=== PATIENT | male | born 1950 | race Caucasian/White ===

== ENCOUNTER 2023-01-13 09:45 | Outpatient (OUT) | payer MEDICARE, OTHER, SELFPAY ==
--- NOTE | 2023-01-13 09:58 | CA_ITS ---
Patient Name Site Name SHEY TAVERAS [facility] Account No Medical Record Number Age Sex Date Time [id number] [facility]:[id number] M 01/13/2023 10:08 At the Request Of KENNEY GARCIA ECHOCARDIOGRAM REPORT PROCEDURE: CA ECHO DOPPLER COMPLETE INDICATIONS: Nonrheumatic aortic valve stenosis, AICD, COPD, hypertension COMPARISON: None. DESCRIPTION: COMPLETE ECHOCARDIOGRAM Real-time transthoracic echocardiography with 2D, M-mode, spectral and color flow Doppler performed. QUALITY: Technical quality was good. LEFT VENTRICLE: Normal chamber size. Proximal septal hypertrophy (sigmoid septum). Global left ventricular systolic function appears preserved with akinesis of the apical segments. LV EF: Low normal left ventricular ejection fraction, (50%). DIASTOLIC: Grade II diastolic dysfunction. ATRIAL SEPTUM: Visually appears intact. LEFT ATRIUM: Moderate dilatation. RIGHT ATRIUM: Moderate dilatation. RIGHT VENTRICLE: Normal chamber size. Normal systolic function. Pacer wire present. TRICUSPID VALVE: Normal mobility and thickness. No stenosis with mild regurgitation. Doppler studies reveal mildly (35-45) elevated right sided pressures. RVSP 35 mmHg MITRAL VALVE: Normal mobility and thickness. No evidence of mitral valve stenosis. There is no mitral annular calcification. Mild mitral regurgitation. AORTIC VALVE: Normal trileaflet appearance. Severely calcified aortic valve. Severely diminished mobility. Doppler velocity suggest severe aortic valve stenosis. LVOT diameter 2.0 cm. DVI 0.25, CAMMIE 0.8 cm2. Mean gradient 27 mmHg. Mild to moderate aortic regurgitation. Valvular gradients appear to be underestimated due to incomplete Doppler envelope across the aortic valve. AORTIC ROOT: Normal diameter and appearance. PULMONIC VALVE: Not well visualized. No stenosis. No regurgitation. PERICARDIUM: No evidence of pericardial effusion. IVC: Collapses with inspirations. PLEURA: CONCLUSION: 1. Ventricular systolic function is at the lower limits of normal with apical wall motion abnormalities. LVEF is 50%. 2. Normal right ventricular size and systolic function. 3. Severe aortic valve stenosis. 4. Mildly elevated right-sided pressures. Adult Echocardiography Procedure Report Left Ventricle LVEDD (3.7 - 5.6 cm): 5.28 cm LVESD (2.2 - 4.0 cm): 3.54 cm LVIVS thickness (0.6 - 1.2 cm): 1.43 cm LVPW thickness (0.5 - 1.0 cm): 1.05 cm e': 0.09 m/s E - e': 8.52 LVOT Max Gradient: 3.33 mm[Hg] LVOT Area (cm2): 0.91 m/s Peak Velocity (LVOT): 0.91 m/s Mean Velocity (LVOT): 0.62 m/s LVOT Diameter 2.0 cm Left Atrium LA Volume Index (2D A2C): 47.59 ml/m2 Left Atrium Systolic Dimension: 5.38 cm Mitral Valve MV E to A Ratio: 1.13 Mitral Valve A-Wave Peak Velocity: 0.67 m/s Mitral Valve E-Wave Peak Velocity: 0.76 m/s Right Ventricle Aorta AO Root Diam: 3.49 cm Aortic Valve AoV Area (Peak Eitan): 1.11 cm2, 1.12 cm2 AoV Area (VTI): 1.27 cm2, 1.29 cm2 Peak Velocity(Antegrade Flow): 3.32 m/s, 3.39 m/s Peak Gradient(Antegrade Flow): 44.04 mm[Hg], 45.96 mm[Hg] Mean Velocity(Antegrade Flow): 2.37 m/s, 2.41 m/s Mean Gradient(Antegrade Flow): 25.68 mm[Hg], 26.82 mm[Hg] Velocity Time Integral: 73.91 cm, 76.26 cm Tricuspid Valve Peak Velocity (Regurgitant Flow): 2.39 m/s, 2.84 m/s Pulmonic Valve Peak Velocity: 0.70 m/s Peak Gradient: 1.91 mm[Hg], 2.06 mm[Hg] Right Atrium Right Atrium Systolic Pressure: 80.23 ml, 80.23 ml Dictated by: Jigar Chun M.D. on 01/14/2023 at 17:59 Approved by: Jigar Chun M.D. on 01/14/2023 at 18:14
== END 2023-01-13 09:46 ==
PROVIDERS: Visit Provider Nurse Practitioner
DX: I35.0 Nonrheumatic aortic (valve) stenosis (principal)
CPT/HCPCS: 93306

== ENCOUNTER 2023-07-07 13:50 | Outpatient (OUT) | payer MEDICARE, OTHER, SELFPAY ==
--- NOTE | 2023-07-07 14:36 | CA_ITS ---
Patient Name: SHEY TAVERAS MR#: [id number] : 1950 Exam Date: 07/07/2023 Ordering Doctor: DR GERTRUDIS KHOURY M.D. ECHOCARDIOGRAM REPORT PROCEDURE: CA ECHO DOPPLER COMPLETE INDICATIONS: Nonrheumatic aortic valve stenosis, defibrillator COMPARISON: None. DESCRIPTION: COMPLETE ECHOCARDIOGRAM Real-time transthoracic echocardiography with 2D, M-mode, spectral and color flow Doppler performed. QUALITY: Technical quality was good. 68 , 180# , BSA 1.95 m2 LEFT VENTRICLE: Normal chamber size. Proximal septal hypertrophy (sigmoid septum). LV EF: Global left ventricular systolic function is hyperdynamic; visually estimated ejection fraction is 65 to 70%. Unable to assess regional wall motion abnormalities. DIASTOLIC: Diastolic function is indeterminate. ATRIAL SEPTUM: Visually appears intact. LEFT ATRIUM: Mild dilatation. RIGHT ATRIUM: Mild dilatation. RIGHT VENTRICLE:Poorly seen. Normal chamber size. Normal right ventricular systolic function. Pacer wire present. TRICUSPID VALVE: Normal mobility and thickness. No stenosis with trivial regurgitation. No evidence of pulmonary hypertension. RVSP 33 mmHg MITRAL VALVE: Normal mobility and thickness. No evidence of mitral valve stenosis. Mild mitral annular calcification. Mild mitral regurgitation. AORTIC VALVE: Normal trileaflet appearance. Severely calcified aortic valve. Doppler velocity suggest moderate aortic valve stenosis. DVI 0.28. Mild aortic regurgitation. AORTIC ROOT: Normal diameter and appearance. PULMONIC VALVE: Normal thickness and mobility. No stenosis. Trivial regurgitation. PERICARDIUM: No evidence of pericardial effusion. IVC: Collapses with inspirations. IVC is normal in size. CONCLUSION: 1. Global ventricular systolic function is hyperdynamic; visually estimated ejection fraction is 65 to 70% 2. The right ventricle is poorly seen; it appears normal in size and systolic function 3. Diastolic function is indeterminate 4. Biatrial enlargement 5. Mild mitral regurgitation 6. Moderate aortic valve stenosis; mild aortic valve regurgitation Adult Echocardiography Procedure Report Left Ventricle LVEDD (3.7 - 5.6 cm): 5.04 cm LVESD (2.2 - 4.0 cm): 3.05 cm LVIVS thickness (0.6 - 1.2 cm): 1.66 cm LVPW thickness (0.5 - 1.0 cm): 1.31 cm e': 0.06 m/s E - e': 13.24 LVOT Max Gradient: 2.82 mm[Hg] LVOT Area (cm2): 0.84 m/s Peak Velocity (LVOT): 0.84 m/s Mean Velocity (LVOT): 0.61 m/s LVOT Diameter 2.36 cm Left Atrium LA Volume Index (2D A2C): 40.24 ml/m2 Left Atrium Systolic Dimension: 5.24 cm Mitral Valve MV E to A Ratio: 1.89 Mitral Valve A-Wave Peak Velocity: 0.43 m/s Mitral Valve E-Wave Peak Velocity: 0.82 m/s Right Ventricle Aorta AO Root Diam: 3.81 cm Aortic Valve Tricuspid Valve Peak Velocity (Regurgitant Flow): 2.35 m/s Pulmonic Valve Peak Velocity: 0.68 m/s Peak Gradient: 2.02 mm[Hg], 1.67 mm[Hg] Right Atrium Dictated by: Sandrine Jeffers M.D. on 07/08/2023 at 08:33 Approved by: Sandrine Jeffers M.D. on 07/08/2023 at 08:40
== END 2023-07-07 13:51 | disposition home or self-care (01) ==
LOC: CARD 13:50
PROVIDERS: Visit Provider Internal Medicine Interventional Cardiology
DX: I35.0 Nonrheumatic aortic (valve) stenosis (principal)
CPT/HCPCS: 93306

== ENCOUNTER 2024-01-26 08:46 | Outpatient (OUT) | payer MEDICARE, OTHER, SELFPAY ==
--- OUTSIDE RECORDS SUMMARY | 2024-01-26 08:52 | XMS_ITS | CCD ---
Author Organization [facility] Team Providers Care Grocery Caddy Name Role Phone UNKNOWN, PROVIDER Admitting Unavailable SELF, REFERRED Referring Unavailable SELF, REFERRED Primary Care Unavailable UNKNOWN, PROVIDER Attending Unavailable PENG, DR CABA Admitting Unavailable PENG, DR CABA Attending Unavailable PENG, DR CABA Consulting Unavailable DAYAMI GONCALVES Admitting Unavailable DAYAMI GONCALVES Attending Unavailable DAYAMI GONCALVES Consulting Unavailable GERTRUDIS KHOURY Attending Unavailable ASHLEY BROWN Referring Unavailable PENG, GERTRUDIS Attending Unavailable ASHLEY BROWN Referring Unavailable ASHLEY BROWN Referring Unavailable Alessandra CABRERA, [facility] Primary Care Provider SALVATORE MCDANIELS Referring Unavailable LAESSANDRA JULIETA Primary Care [facility] Care Unavailable ORLANDO MENDENHALL Referring Unavailable Allergies Allergy Classification Reported Allergen(s) Allergy Type Date of Onset Reaction(s) Facility (1 source) Amiodarone Drug Allergy 06-20-2021 [facility] Repository (2 sources) pantoprazole; Translations: [PANTOPRAZOLE] Drug Allergy 02-12-2017 [facility] Repository (2 sources) Amiodarone; Translations: [AMIODARONE] Drug Allergy 03-26-2016 [facility] Repository (1 source) pantoprazole Drug Allergy 10-11-2019 [facility] Medications Current Medications Medication Drug Class(es) Dates Sig (Normalized) Sig (Original) [id number] 200 actuat albuterol 0.09 mg/actuat metered dose inhaler (1 source) beta2-Adrenergic Agonist take 2 puff(s) by inhalation every six hours as needed for wheezing albuterol sulfate HFA (PROVENTIL;VENTOL IN;PROAIR) 108 (90 Base) MCG/ACT inhaler Inhale 2 puffs into the lungs every 6 hours as needed for Wheezing 0 Active albuterol 0.833 mg/ml / ipratropium bromide 0.167 mg/ml inhalation solution (1 source) Anticholinergic, beta2-Adrenergic Agonist take 3 mL by inhalation every four hours ipratropium-albut jitendra (DUONEB) 0.5-2.5 (3) MG/3ML SOLN nebulizer solution Inhale 3 mLs into the lungs every 4 hours 0 Active apixaban 5 mg oral tablet (1 source) Factor Xa Inhibitor take 1 tablet by mouth twice daily apixaban (ELIQUIS) 5 MG TABS tablet Take 1 tablet by mouth 2 times daily 0 Active atorvastatin 20 mg oral tablet (1 source) HMG-CoA Reductase Inhibitor take 1 tablet by mouth once daily 60 actuat budesonide 0.16 mg/actuat / formoterol fumarate 0.0045 mg/actuat metered dose inhaler (1 source) Corticosteroid, beta2-Adrenergic Agonist take 2 puff(s) by inhalation once daily budesonide-formot jitendra (SYMBICORT) 160-4.5 MCG/ACT AERO Inhale 2 puffs into the lungs daily 0 Active furosemide 20 mg oral tablet (1 source) Loop Diuretic Start: 11-25-2022 take 1 tablet by mouth every other day furosemide (LASIX) 20 MG tablet Take 1 tablet by mouth every other day 90 tablet 2 11/25/2022 Active lisinopril 5 mg oral tablet (1 source) Angiotensin Converting Enzyme Inhibitor Start: 04-17-2020 take 1 tablet by mouth once daily lisinopril (PRINIVIL;ZESTRIL ) 5 MG tablet Take 1 tablet by mouth daily 90 tablet 3 04/17/2020 Active metoprolol tartrate 100 mg oral tablet (1 source) beta-Adrenergic Alfredito take 1 tablet by mouth twice daily metoprolol (LOPRESSOR) 100 MG tablet Take 1 tablet by mouth 2 times daily 0 Active Problems Active Problems Problem Classification Problem Date Documented Date Episodic/Chronic Cardiac dysrhythmias (2 sources) Paroxysmal atrial fibrillation; Translations: [Paroxysmal atrial fibrillation] Onset: 01-15-2023 Chronic Chronic kidney disease (1 source) Chronic kidney disease stage 3A ; Translations: [Stage 3a chronic kidney disease (HCC)] 12-11-2023 Chronic Chronic kidney disease (3 sources) Chronic kidney disease; Translations: [Chronic kidney disease, stage 3a] Onset: 01-15-2023 Conduction disorders (4 sources) Presence of automatic (implantable) cardiac defibrillator; Translations: [Encounter for adjustment and management of automatic implantable cardiac defibrillator] Onset: 09-03-2022 Chronic Coronary atherosclerosis and other heart disease (2 sources) Atherosclerotic heart disease of morongo coronary artery without angina pectoris; Translations: [Atherosclerotic heart disease of morongo coronary artery without angina pectoris] Onset: 07-10-2022 Chronic Essential hypertension (3 sources) Essential (primary) hypertension; Translations: [Essential (primary) hypertension] Onset: 01-15-2023 Chronic Fluid and electrolyte disorders (1 source) Hyperkalemia; Translations: [Hyperkalemia] Onset: 12-17-2023 Episodic Heart valve disorders (7 sources) Nonrheumatic aortic (valve) stenosis; Translations: [Rheumatic disorders of both mitral and aortic valves] Onset: 12-27-2021 Chronic Ashlie-; endo-; and myocarditis; cardiomyopathy (except that caused by tuberculosis or sexually transmitted disease) (2 sources) Other hypertrophic cardiomyopathy; Translations: [Other hypertrophic cardiomyopathy] Onset: 07-10-2022 Chronic Past or Other Problems Problem Classification Problem Date Documented Da te Episodic/Chronic Coronary atherosclerosis and other heart disease (2 sources) Presence of aortocoronary bypass graft; Translations: [Presence of aortocoronary bypass graft] Onset: 01-15-2023 Episodic Unclassified (1 source) Onset: 11-25-2022 11-25-2022 Results Test Name Value Interpretation Reference Range Facility Basic Metabolic Profon 12-16 Anion gap [Moles/Vol] 11 mmol/L Normal 9-16 [facility] Comment on above: Performed By: #### B MP #### [employer] [address] [place] [address] [id number] [employer] Covers Inspector: Cameron Hargrove MD Calcium [Mass/Vol] 9.4 mg/dL Normal 8.6-10.4 [facility] Comment on above: Performed By: #### B MP #### [employer] [address] [place] [address] [employer] Inspector: Cameron Hargrove MD Chloride [Moles/Vol] 107 mmol/L Normal 98-107 [facility] Comment on above: Performed By: #### B MP #### [facility] [place] [address] [employer] Covers Inspector: Cameron Hargrove MD CO2 [Moles/Vol] 26 mmol/L Normal 20-31 [facility] Comment on above: Performed By: #### B MP #### [facility] [employer] [address] [place] [address] [employer] Co[employer] Inspector: Cameron Hargrove MD Creatinine [Mass/Vol] 1.6 mg/dL High 0.70-1.20 [facility] Comment on above: Performed By: #### B MP #### [address] [address] [employer] Inspector: Cameron Hargrove MD GFR/1.73 sq M.predicted among non-blacks MDRD (S/P/Bld) [Vol rate/Area] 45 mL/min/{1.73_m2} Low >60 [facility] Comment on above: Result Comment: These results are not intended for use in patients <18 years of age. eGFR results are calculated without a race factor using the 2020 CKD-EPI equation. Careful clinical correlation is recommended, particularly when comparing to results calculated using previous equations. The CKD-EPI equation is less accurate in patients with extremes of muscle mass, extra-renal metabolism of creatine, excessive creatine ingestion, or following therapy that affects renal tubular secretion. Performed By: #### B MP #### [facility] [address] [place] [address] [employer] Co[employer] Inspector: Cameron Hargrove MD Glucose [Mass/Vol] 62 mg/dL Low 74-99 [facility] Comment on above: Performed By: #### B MP #### [address] [address] [employer] Co[employer] Inspector: Cameron Hargrove MD Potassium [Moles/Vol] 5.2 mmol/L Normal 3.7-5.3 [facility] Comment on above: Result Comment: SPEC IMEN SLIGHTLY HEMOLYZED, RESULTS MAY BE ADVERSELY AFFECTED. Performed By: #### B MP #### [employer] [address] [place], [place] [id number] [employer] Covers Inspector: Cameron Hargrove MD Sodium [Moles/Vol] 144 mmol/L Normal 136-145 [facility] Comment on above: Performed By: #### B MP #### [employer] [address] [place] [address] [employer] Covers Inspector: Cameron Hargrove MD Urea nitrogen [Mass/Vol] 23 mg/dL Normal 8-23 [facility] Comment on above: Performed By: #### B MP #### [employer] [address] [place], [place] [id number] [employer] Covers Inspector: Cameron Hargrove MD Basic Metabolic Panelon 05-0 Anion gap [Moles/Vol] 12 mmol/L 9 - 16 mmol/L [facility] Calcium [Mass/Vol] 9.7 mg/dL 8.6 - 10. 4 mg/dL [facility] Chloride [Moles/Vol] 102 mmol/L 98 - 10 7 mmol/L [facility] [employer] CO2 [Moles/Vol] 27 mmol/L 20 - 31 mmol/L [facility] [employer] Creatinine [Mass/Vol] 1.4 mg/dL High 0.70 - 1.20 mg/dL [facility] Est, Glom Filt Rate 54 Low - PINF [facility] Comment on above: These results are not intended for use in patients <18 years of age. eGFR results are calculated without a race factor using the 2020 CKD-EPI equation. Careful clinical correlation is recommended, particularly when comparing to results calculated using previous equations. The CKD-EPI equation is less accurate in patients with extremes of muscle mass, extra-renal metabolism of creatine, excessive creatine ingestion, or following therapy that affects renal tubular secretion. Glucose [Mass/Vol] 95 mg/dL 74 - 99 mg/dL [facility] Potassium [Moles/Vol] 5.6 mmol/L High 3.7 - 5.3 mmol/L [facility] Sodium [Moles/Vol] 141 mmol/L 136 - 145 mmol/L [facility] Urea nitrogen [Mass/Vol] 21 mg/dL 8 - 23 mg/dL [facility] Basic Metabolic Profon 12-10 Anion gap [Moles/Vol] 12 mmol/L Normal 9-16 [facility] Comment on above: Performed By: #### C LANI BMP, VD25 #### [facility] [employer] [address] [place] [address] [employer] Co[employer] Inspector: Cmaeron Hargrove MD Calcium [Mass/Vol] 9.7 mg/dL Normal 8.6-10.4 [facility] Comment on above: Performed By: #### C LIVAN GARIBAY, VD25 #### [facility] [employer] [address] [place] [address] [employer] Covers Inspector: Cameron Hargrove MD Chloride [Moles/Vol] 102 mmol/L Normal 98-107 [facility] Comment on above: Performed By: #### C LIVAN GARIBAY, VD25 #### [facility] [address] [place] [address] U[employer]ol[employer] Covers Inspector: Cameron Hargrove MD CO2 [Moles/Vol] 27 mmol/L Normal 20-31 [facility] Comment on above: Performed By: #### C LIVAN GARIBAY, VD25 #### [facility] [address] [place] [address] [employer] Co[employer] Inspector: Cameron Hargrove MD Creatinine [Mass/Vol] 1.4 mg/dL High 0.70-1.20 [facility] Comment on above: Performed By: #### C LANI BMP, VD25 #### [facility] [address] [place] [address] [employer] Co[employer] Inspector: Cameron Hargrove MD GFR/1.73 sq M.predicted among non-blacks MDRD (S/P/Bld) [Vol rate/Area] 54 mL/min/{1.73_m2} Low >60 [facility] Comment on above: Result Comment: These results are not intended for use in patients <18 years of age. eGFR results are calculated without a race factor using the 2020 CKD-EPI equation. Careful clinical correlation is recommended, particularly when comparing to results calculated using previous equations. The CKD-EPI equation is less accurate in patients with extremes of muscle mass, extra-renal metabolism of creatine, excessive creatine ingestion, or following therapy that affects renal tubular secretion. Performed By: #### C LIVAN GARIBAY, VD25 #### [facility] [address] [place] [address] [employer] Co[employer] Inspector: Cameron Hargrove MD Glucose [Mass/Vol] 95 mg/dL Normal 74-99 [facility] Comment on above: Performed By: #### C LIVAN GARIBAY, VD25 #### [employer] [address] [place] [address] [employer] Co[employer] Inspector: Cameron Hargrove MD Potassium [Moles/Vol] 5.6 mmol/L High 3.7-5.3 [facility] Comment on above: Performed By: #### C LIVAN GARIBAY, VD25 #### [employer] [address] [place] [address] [employer] Co[employer] Inspector: Cameron Hargrove MD Sodium [Moles/Vol] 141 mmol/L Normal 136-145 [facility] Comment on above: Performed By: #### C LANI BMP, VD25 #### [employer] [address] [place] [address] [employer] Covers Inspector: Cameron Hargrove MD Urea nitrogen [Mass/Vol] 21 mg/dL Normal 8-23 [facility] Comment on above: Performed By: #### C LIVAN GARIBAY, VD25 #### [employer] [address] [place] [address] [employer] Co[employer] Inspector: Cameron Hargrove MD CBCon 12-11-2023 Erythrocyte distribution width (RBC) [Ratio] 14.2 % Normal 11.8-14.4 [facility] Comment on above: Performed By: #### C BC, BMP, VD25 #### [facility] [employer] [address] [place] [address] [employer] Covers Inspector: Cameron Hargrove MD Hematocrit (Bld) [Volume fraction] 45.0 % Normal 40.7-50.3 [facility] Comment on above: Performed By: #### C BC, BMP, VD25 #### [facility] [address] [place] [address] [employer] Co[employer] Inspector: Cameron Hargrove MD Hemoglobin (Bld) [Mass/Vol] 13.7 g/dL Normal 13.0-17.0 [facility] Comment on above: Performed By: #### C BC, BMP, VD25 #### [facility] [employer] [address] [place] [address] [employer] Co[employer] Inspector: Cameron Hargrove MD MCH (RBC) [Entitic mass] 30.0 pg Normal 25.2-33.5 [facility] Comment on above: Performed By: #### C BC, BMP, VD25 #### [facility] [address] [place] [address] [employer] Co[employer] Inspector: Cameron Hargrove MD MCHC (RBC) [Mass/Vol] 30.4 g/dL Normal 28.4-34.8 [facility] Comment on above: Performed By: #### C BC, BMP, VD25 #### [facility] [address] [place] [address] [employer] Covers Inspector: Cameron Hargrove MD MCV (RBC) [Entitic vol] 98.5 fL Normal 82.6-102.9 [facility] Comment on above: Performed By: #### C BC, BMP, VD25 #### [facility] [employer] [address] [place] [address] [employer] Covers Inspector: Cameron Hargrove MD NRBC Automated 0.0 per 100 WBC Normal 0.0 [facility] Comment on above: Performed By: #### LIVAN LAUREANO, VD25 #### [facility] [address] [place] [address] [employer] Co[employer] Inspector: Cameron Hargrove MD Platelet mean volume (Bld) [Entitic vol] 10.9 fL Normal 8.1-13.5 [facility] Comment on above: Performed By: #### C LIVAN GARIBAY, VD25 #### [facility] [address] [place] [address] [employer] Co[employer] Inspector: Cameron Hargrove MD Platelets (Bld) [#/Vol] 162 10*3/uL Normal 138-453 [facility] Comment on above: Performed By: #### LIVAN LAUREANO, VD25 #### [facility] [employer] [address] [place] [address] [employer] Co[employer] Inspector: Cameron Hargrove MD RBC (Bld) [#/Vol] 4.57 10*6/uL Normal 4.21-5.77 [facility] Comment on above: Performed By: #### ILVAN LAUREANO, VD25 #### [facility] [address] [place] [address] [employer] Co[employer] Inspector: Cameron Hargrove MD WBC (Bld) [#/Vol] 7.3 10*3/uL Normal 3.5-11.3 [facility] Comment on above: Performed By: #### C LIVAN GARIBAY, VD25 #### [facility] [employer] [address] [place] [address] [employer] Covers Inspector: Cameron Hargrove MD Erythrocyte distribution width (RBC) [Ratio] 14.2 % 11.8 - 14.4 % [facility] Hematocrit (Bld) [Volume fraction] 45.0 % 40.7 - 50.3 % [facility] Hemoglobin (Bld) [Mass/Vol] 13.7 g/dL 13.0 - 17.0 g/dL [facility] MCH (RBC) [Entitic mass] 30.0 pg 25.2 - 33.5 pg [facility] MCHC (RBC) [Mass/Vol] 30.4 g/dL 28.4 - 34.8 g/dL [facility] MCV (RBC) [Entitic vol] 98.5 fL 82.6 - 102.9 fL [facility] Nucleated RBC/100 WBC (Bld) [Ratio] 0.0 % 0.0 per 100 WBC [facility] Platelet mean volume (Bld) [Entitic vol] 10.9 fL 8.1 - 13.5 fL [facility] Platelets (Bld) [#/Vol] 162 10*3/uL [facility] RBC (Bld) [#/Vol] 4.57 10*6/uL 4.21 - 5.7 7 m/uL [facility] WBC other (Bld) [#/Vol] 7.3 [facility] No Panel Informationon 12-10 Interpretation and review of laboratory results Abnormal [facility] Protein / Creatinine Ratio, Urineon 12-11-2023 Creatinine (U) [Mass/Vol] 36.1 mg/dL Low 39.0 - 259.0 mg/dL [facility] Interpretation and review of laboratory results Abnormal [facility] Protein (U) [Mass/Vol] 8 mg/dL [facility] Comment on above: No normal range esta blished. Urine Total Protein Creatinine Ratio 0.21 [facility] Protein,Tot,Thornton Uron 2023 Creatinine [Mass/Vol] 36.1 mg/dL Low 39.0-259.0 [facility] Comment on above: Performed By: #### U RTPRT #### [employer] [address] [place] [address] [employer] Co[employer] Inspector: Caemron Hargrove MD Tot Prot. Conc. 8 mg/dL Normal [facility] Comment on above: Result Comment: No n ormal range established. Performed By: #### U RTPRT #### [address] [address] [employer] Inspector: Cameron Hargrove MD TP/Cre Ratio 0.21 Normal [facility] Comment on above: Performed By: #### U RTPRT #### [address] [address] [employer] Co[employer] Inspector: Cameron Hargrove MD Urinalysis w/ Microon 2023 Bacteria None Normal NONE [facility] Comment on above: Performed By: #### U AMIC #### [address] [address] [employer] Inspector: Cameron Hargrove MD Bilirubin, SemiQt,Ur Negative Normal NEG [facility] Comment on above: Performed By: #### U AMIC #### [address] [address] [employer] Inspector: Cameron Hargrove MD Blood, Urine Negative Normal NEG [facility] Comment on above: Performed By: #### U AMIC #### [address] [address] [employer] Inspector: Cameron Hargrove MD Casts None Normal 0-8 [facility] Comment on above: Result Comment: Refe rence range defined for non-centrifuged specimen. Performed By: #### U AMIC #### [address] [address] [employer] Inspector: Cameron Hargrove MD Clarity (U) Clear Normal CLEAR [facility] Comment on above: Performed By: #### U AMIC #### [address] [address] [employer] Inspector: Cameron Hargrove MD Color (U) Yellow Normal YEL [facility] Comment on above: Performed By: #### U AMIC #### [address] [address] [employer] Inspector: Cameron Hargrove MD Epithelial cells LM Ql (Urine sed) None Normal 0-5 [facility] Comment on above: Performed By: #### U AMIC #### [address] [address] [employer] Inspector: Cameron Hargrove MD Glucose Ql (U) Negative Normal NEG [facility] Comment on above: Performed By: #### U AMIC #### [address] [address] [employer] Inspector: Cameron Hargrove MD Ketones Ql (U) Negative Normal NEG [facility] Comment on above: Performed By: #### U AMIC #### [address] [address] [employer] Inspector: Cameron Hargrove MD Leukocyte esterase Test strip Ql (U) Negative Normal NEG [facility] Comment on above: Performed By: #### U AMIC #### [address] [address] [employer] Inspector: Cameron Harrgove MD Nitrite,Ur Negative Normal NEG [facility] Comment on above: Performed By: #### U AMIC #### [address] [address] [employer] Co[employer] Inspector: Cameron Hargrove MD PH,Ur 6.0 Normal 5.0-8.0 [facility] Comment on above: Performed By: #### U AMIC #### [address] [address] [employer] Inspector: Cameron Hargrove MD Protein Ql (U) Negative Normal NEG [facility] Comment on above: Performed By: #### U AMIC #### [address] [address] [employer] Inspector: Cameron Hargrove MD Spec. [place],Ur 1.006 Normal 1.005-1.030 [facility] Comment on above: Performed By: #### U AMIC #### [employer] [address] [place] [address] [employer] Covers Inspector: Cameron Hargrove MD Urine RBC's None Normal 0-4 [facility] Comment on above: Result Comment: Refe rence range defined for non-centrifuged specimen. Performed By: #### U AMIC #### [facility] [address] [place] [address] [employer] Covers Inspector: Cameron Hargrove MD Urine WBC's None Normal 0-5 [facility] Comment on above: Performed By: #### U AMIC #### [facility] [employer] [address] [place] [address] [employer] Covers Inspector: Cameron Hargrove MD Urobilinogen,Ur Normal Normal 0.0-1.0 [facility] Comment on above: Performed By: #### U AMIC #### [facility] [address] [address] [employer] Co[employer] Inspector: Cameron Hargrove MD Urinalysis with Microscopico n 12-11-2023 Bacteria LM Ql (Urine sed) None None [facility] Bilirubin Ql (U) Negative NEGATIVE [facility] Casts LM.LPF (Urine sed) [#/Area] None Reference range defined for non-centrifuged specimen. [facility] Clarity (U) Clear Clear [facility] Color (U) Yellow Yellow [facility] Epithelial cells LM.HPF (Urine sed) [#/Area] None [facility] Glucose Test strip (U) [Mass/Vol] Negative NEGATIVE mg/dL [facility] Hemoglobin Auto test strip Ql (U) Negative NEGATIVE [facility] Ketones (U) [Mass/Vol] Negative NEGATIVE mg/dL [facility] Leukocyte esterase Test strip Ql (U) Negative NEGATIVE [facility] Nitrite Ql (U) Negative NEGATIVE [facility] pH (U) 6.0 [pH] 5.0 - 8.0 [facility] Protein (U) [Mass/Vol] Negative NEGATIVE mg/dL [facility] RBC LM.HPF (Urine sed) [#/Area] None [facility] Comment on above: Reference range defi jorge for non-centrifuged specimen. Specific gravity (U) [Rel density] 1.006 1.005 - 1.030 [facility] Urobilinogen Qn (U) Normal 0.0 - 1. 0 EU/dL [facility] WBC LM.HPF (Urine sed) [#/Area] None [facility] Vitamin D 25 Hydroxyon 12-10 25-hydroxyvitamin D3 [Mass/Vol] 21.6 ng/mL Low 30.0 - 100.0 ng/mL [facility] Comment on above: Reference Range: Vitamin D status Range Deficiency <20 ng/mL Mild Deficiency 20-30 ng/mL Sufficiency 30-100 ng/mL Toxicity >100 ng/mL Vitamin D 25 OHon 12-11-2023 Vitamin D 25 OH 21.6 ng/mL Low 30.0-100.0 [facility] Comment on above: Result Comment: Reference Range: Vitamin D status Range Deficiency <20 ng/mL Mild Deficiency 20-30 ng/mL Sufficiency 30-100 ng/mL Toxicity >100 ng/mL Performed By: #### C BC, BMP, VD25 #### [employer] [address] [place] [address] [employer] Co[employer] Inspector: Cameron Hargrove MD Office Visiton 07-11-2023 Follow-up visit [id number] Shey Pantoja 1950 M Date Provider Department Center 07/11/2023 GERTRUDIS BOLAÑOS Family History Problem Relation Age of Onset Other Father Family Status - Relation Status Age at Father Level of Service:95285 [place] OFFICE/OUTPATIENT ESTABLISHED LOW MDM 20-29 MIN Normal [facility] Office Visiton 01-15-2023 Follow-up visit [id number] Shey Pantoja 1950 M Date Provider Department Center 01/15/2023 MAYELINJAYNAGERTRUDIS COOL [facility] Family History Problem Relation Age of Onset Other Father Family Status - Relation Status Age at Father Level of Service:21463 [place] OFFICE/OUTPATIENT ESTABLISHED MOD MDM 30-39 MIN Normal [facility] ECHOCARDIO M/2D COMPLETEon 1 08-13-2021 ECHOCARDIO M/2D COMPLETE Patient: SHEY PANTOJA. Exam Date: 06/13/2022 : 1950 Gender:M Ordering : DAYAMI GONCALVES [facility] Admission #: [id number] Family : Order #: [id number] CLICK HERE TO VIEW EXAM ECHOCARDIOGRAM REPORT PROCEDURE: CARDIO PULMONARY ECHOCARDIO M/2D COMP INDICATIONS: Nonrheumatic aortic valve stenosiis COMPARISON: None. DESCRIPTION: COMPLETE ECHOCARDIOGRAM Real-time transthoracic echocardiography with 2D, M-mode, spectral and color flow Doppler performed. QUALITY: Technical quality was good. LEFT VENTRICLE: Normal chamber size. Thickened septal wall. Global left ventricular systolic function is at the lower limits of normal. 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 LV EF: Estimated left ventricular ejection fraction is 50%. DIASTOLIC: Grade 2 diastolic dysfunction. ATRIAL SEPTUM: LEFT ATRIUM: Mild dilatation. RIGHT ATRIUM: Normal chamber size. Pacer wire present. RIGHT VENTRICLE: Normal chamber size. Normal right ventricular systolic function. Pacer wire present. TRICUSPID VALVE: Normal mobility and thickness. No stenosis with mild regurgitation. No evidence of pulmonary hypertension. RVSP 34 mmHg MITRAL VALVE: Normal mobility and thickness. No mitral valve prolapse. No evidence of mitral valve stenosis. Mild mitral annular calcification. Trivial mitral regurgitation. AORTIC VALVE: Moderately to severely calcified aortic valve. Moderately to severely diminished mobility. Doppler velocity suggest moderate to severe aortic valve stenosis. DVI 0.27, CAMMEI 1.0 cm2, mean gradient 32 mmHg, peak velocity 3.7 m/s. Mild aortic regurgitation. AORTIC ROOT: Normal diameter and appearance. PULMONIC VALVE: Normal thickness and mobility. No stenosis. Trivial regurgitation. PERICARDIUM: No evidence of pericardial effusion. IVC: Collapses with inspirations. Normal size. PLEURA: CONCLUSION: 1. Left ventricular systolic function is at the lower limits of normal. There is dyskinesis of the apical myocardium. LVEF is 50%. 2. Normal right ventricular size and systolic function. 3. Moderate to severe aortic valve stenosis. 4. Mild mitral and aortic regurgitation. 5. Normal right-sided pressures. Adult Echocardiography Procedure Report Left Ventricle LVEDD (3.7 - 5.6 cm): 3.91 cm LVESD (2.2 - 4.0 cm): 2.89 cm LVIVS thickness (0.6 - 1.2 cm): 1.74 cm LVPW thickness (0.5 - 1.0 cm): 1.18 cm e': 0.09 m/s E - e': 6.88 LVOT Max Gradient: 4.12 mm[Hg] Peak Velocity (LVOT): 1.01 m/s Mean Velocity (LVOT): 0.74 m/s LVOT Diameter 2.14 cm Left Ventricular Ejection Fraction: 50 % Left Atrium LA Volume Index (2D A2C): 67.00 ml, 67.00 ml Left Atrium Systolic Dimension: 4.75 cm Mitral Valve MV E to A Ratio: 1.13 Mitral Valve A-Wave Peak Velocity: 0.53 m/s Mitral Valve E-Wave Peak Velocity: 0.60 m/s Right Ventricle RV Internal Diastolic Dimension: 3.71 cm Aorta AO Root Diam: 3.44 cm Ascending Ao Diam: 3.02 cm Aortic Valve AoV Area (Peak Eitan): 0.99 cm2, 0.99 cm2, 1.00 cm2, 1.00 cm2 AoV Area (VTI): 1.09 cm2, 1.09 cm2 Peak Velocity(Antegrade Flow): 3.70 m/s, 3.68 m/s Peak Gradient(Antegrade Flow): 54.82 mm[Hg], 54.10 mm[Hg] Mean Velocity(Antegrade Flow): 2.63 m/s Mean Gradient(Antegrade Flow): 31.49 mm[Hg] Velocity Time Integral: 79.47 cm Tricuspid Valve Peak Velocity (Regurgitant Flow): 2.07 m/s, 2.12 m/s, 2.80 m/s Peak Velocity: 0.35 m/s Pulmonic Valve Mean Gradient: 1.05 mm[Hg] Mean Velocity: 0.49 m/s Peak Velocity: 0.62 m/s, 0.82 m/s Peak Gradient: 1.53 mm[Hg], 2.72 mm[Hg] Right Atrium Right Atrium Systolic Pressure: 79.73 ml, 79.73 ml Dictated by: Gertrudis Khoury M.D. on 06/19/2022 at 18:30 Approved by: Gertrudis Khoury M.D. on 06/19/2022 at 18:37 Normal [facility] ECHOCARDIO M/2D COMPLETEon 0 12-25-2021 ECHOCARDIO M/2D COMPLETE Patient: SHEY PANTOJA Exam Date: 12/25/2021 : 1950 Gender:M Ordering : DR GERTRUDIS KHOURY M.D. Admission #: [id number] Family : Order #: [id number] CLICK HERE TO VIEW EXAM ECHOCARDIOGRAM REPORT PROCEDURE: CARDIO PULMONARY ECHOCARDIO M/2D COMP INDICATIONS: Aortic valve stenosis, s/p CABG x 3 (2001), hypertension COMPARISON: None. DESCRIPTION: COMPLETE ECHOCARDIOGRAM Real-time transthoracic echocardiography with 2D, M-mode, spectral and color flow Doppler performed. QUALITY: Technical quality was good. LEFT VENTRICLE: Small chamber size. Moderate concentric left ventricular hypertrophy. Global left ventricular systolic function appears to be at the lower limits of normal with wall motion abnormalities. Thayer appears dyskinetic. Mild ventricular outflow obstruction. LV EF: Low normal left ventricular ejection fraction, (50%). DIASTOLIC: Grade III diastolic dysfunction. ATRIAL SEPTUM: Visually appears intact. LEFT ATRIUM: Mild dilatation. RIGHT ATRIUM: Mild dilatation. RIGHT VENTRICLE: Mild dilatation. Normal right ventricular systolic function. Pacer wire present. TRICUSPID VALVE: Normal mobility and thickness. No stenosis with trivial regurgitation. MITRAL VALVE: Normal mobility and thickness. No evidence of mitral valve stenosis. Mild mitral annular calcification. Mild mitral regurgitation. AORTIC VALVE: Normal trileaflet appearance. Severely calcified aortic valve. Doppler velocity suggests severe aortic valve stenosis. DVI 0.2, mean 28 mmHg, CAMMIE(VTI) 0.93 cm2. Mild aortic regurgitation. AORTIC ROOT: Normal diameter and appearance. PULMONIC VALVE: Not well visualized. No stenosis. No regurgitation. PERICARDIUM: No evidence of pericardial effusion. IVC: Collapses with inspirations. IVC is normal in size. PLEURA: CONCLUSION: 1. Left ventricular systolic function is at the lower limits of normal with wall motion abnormality involving the apex. 2. Normal right ventricular systolic function. 3. Grade 3 diastolic dysfunction. 4. Severe aortic valve stenosis, valve area 0.9 cm?, DVI 0.2. 5. Mild mitral and aortic regurgitation. 6. No pericardial effusion. Adult Echocardiography Procedure Report Left Ventricle LVEDD (3.7 - 5.6 cm): 3.79 cm LVESD (2.2 - 4.0 cm): 2.47 cm LVIVS thickness (0.6 - 1.2 cm): 1.43 cm LVPW thickness (0.5 - 1.0 cm): 1.58 cm e': 8.55 cm/s E - e': 12.90 LVOT Area (cm2): 3.14 cm2 LVOT Diameter 2.00 cm Left Ventricular Ejection Fraction: 50 % Left Atrium LA Volume Index (2D A2C): 40.50 ml/m2 Left Atrium Systolic Dimension: 5.00 cm Left Atrium Systolic Area(A2C): 24.40 cm2 Left Atrium Systolic Area(A4C): 24.10 cm2 Left Atrium Systolic Volume(A2C): 40865 mm3 Left Atrium Systolic Volume(A4C): 75674 mm3 Mitral Valve MV E to A Ratio: 2.50 Mitral Valve A-Wave Peak Velocity: 44.40 cm/s Mitral Valve E-Wave Peak Velocity: 110.00 cm/s Deceleration Time: 180 ms Right Ventricle Aorta AO Root Diam: 3.80 cm Aortic Valve Peak Velocity (Antegrade Flow): 317.00 cm/s, 257.00 cm/s AoV Area (Peak Eitan): 0.74 cm2 AoV Area (VTI): 0.93 cm2 Peak Velocity(Antegrade Flow): 329.00 cm/s Peak Gradient(Antegrade Flow): 43 mm[Hg] Mean Velocity(Antegrade Flow): 250.00 cm/s Mean Gradient(Antegrade Flow): 28 mm[Hg] Velocity Time Integral: 79.20 cm Tricuspid Valve Pulmonic Valve Peak Velocity: 63.30 cm/s Peak Gradient: 2 mm[Hg] Right Atrium Dictated by: Gertrudis Khoury M.D. on 12/25/2021 at 16:58 Approved by: Gertrudis Khoury M.D. on 12/25/2021 at 17:06 Normal [facility] BASIC METABOLIC PANELon 11-1 Calcium [Mass/Vol] 9.7 mg/dL Normal 8.6-10.[address] [facility] Comment on above: Performed By: #### 0 0071 #### [facility] [address] [place] [address], [place] Chloride [Moles/Vol] 103 mmol/L Normal 98-107 [facility] Comment on above: Performed By: #### 0 0071 #### [facility] [address] [place] [address], [place] CO2 [Moles/Vol] 30 mmol/L Normal 21-31 The [facility] Comment on above: Performed By: #### 0 0071 #### [facility] [address] [place] [address], [place] Creatinine [Mass/Vol] 1.41 mg/dL High 0.70-1.30 [facility] Comment on above: Performed By: #### 0 0071 #### [facility] [address] [place] [address], [place] eGFR- 60 ml/min/1.73sq m Abnormal >60 [facility] Comment on above: Result Comment: Calc ulation may not be valid for patients over 70 years Performed By: #### 0 0071 #### [facility] [address] [place] [address], [place] eGFR- non- 49 ml/min/1.73sq m Abnormal >60 [facility] Comment on above: Result Comment: Calc ulation may not be valid for patients over 70 years Performed By: #### 0 0071 #### [facility] [address] [place] [address], [place] Glucose [Mass/Vol] 93 mg/dL Normal 70-[address] [facility] Comment on above: Performed By: #### 0 0071 #### [facility] [address] [place] [address], [place] Potassium [Moles/Vol] 4.1 mmol/L Normal 3.5-5.1 [facility] Comment on above: Performed By: #### 0 0071 #### [facility] [address] [place] [address], [facility] Sodium [Moles/Vol] 140 mmol/L Normal 136-[address] [facility] Comment on above: Performed By: #### 0 0071 #### [facility] [address] [place] [address], [facility] Urea nitrogen [Mass/Vol] 20 mg/dL Normal 7-25 [facility] Comment on above: Performed By: #### 0 0071 #### [facility] [address] [place] [id number], [facility] CBC COMPLETE BLOOD COUNTon 08-20-2020 Erythrocyte distribution width (RBC) [Ratio] 13.2 % Normal 11.5-15.0 [facility] Comment on above: Performed By: #### 5 [id number] #### [facility] [address] [place] [address], [facility] Hematocrit (Bld) [Volume fraction] 43.1 % Normal 39.0-50.0 [facility] Comment on above: Performed By: #### 5 [id number] #### [facility] [address] [place] [address], [facility] Hemoglobin (Bld) [Mass/Vol] 14.3 g/dL Normal 13.0-17.0 [facility] Comment on above: Performed By: #### 5 [id number] #### [facility] [address] [place] [address], [facility] MCH (RBC) [Entitic mass] 30.8 pg Normal 27.0-33.0 [facility] Comment on above: Performed By: #### 5 [id number] #### [facility] [address] [place] [address], [facility] MCHC (RBC) [Mass/Vol] 33.2 g/dL Normal 32.0-35.0 [facility] Comment on above: Performed By: #### 5 0608 #### [facility] [address] [place] [address], [facility] MCV (RBC) [Entitic vol] 92.9 fL Normal 82.0-98.0 [facility] Comment on above: Performed By: #### 5 [id number] #### [facility] [address] [facility] [place] [address], [facility] Nucleated RBC/100 WBC (Bld) [Ratio] 0 % Normal 0-0 [facility] Comment on above: Performed By: #### 5 [id number] #### [facility] [address] [facility] [place] [address], [facility] PLAT CNT 198 10*3/uL Normal 150-400 [facility] Comment on above: Performed By: #### 5 [id number] #### [facility] [address] [facility] [place] [address], [facility] RBC (Bld) [#/Vol] 4.64 10*6/uL Normal 4.20-5.70 The [facility] Comment on above: Performed By: #### 5 [id number] #### [facility] [address] [facility] [place] [address], [facility] WBC (Bld) [#/Vol] 8.37 10*3/uL Normal 4.00-10.60 The [facility] Comment on above: Performed By: #### 5 [id number] #### [facility] [address] Encounters Encounter Date Encounter Type Care Provider Facility Start: 12-17-2023 End: 12-18-2023 ambulatory SALVATORE MCDANIELS [facility] Start: 12-11-2023 End: 12-12-2023 ambulatory JULIETA APARICIO [facility] Start: 12-11-2023 End: 12-11-2023 Subsequent hospital visit by physician Julieta Aparicio MD Work Phone: [facility] Comment on above: Stage 3a chronic kid juliane disease (HCC) Start: 07-25-2023 End: 07-25-2023 ambulatory [facility] Start: 07-11-2023 End: 07-11-2023 ambulatory [facility] Start: 02-05-2023 End: 02-05-2023 ambulatory [facility] Start: 01-15-2023 End: 01-15-2023 ambulatory [facility] Start: 09-03-2022 End: 09-03-2022 ambulatory [facility] Start: 06-13-2022 End: 06-14-2022 ambulatory DAYAMI GONCALVES Facility:[facility] Start: 12-25-2021 End: 12-26-[address] GERTRUDIS KHOURY Facility:[facility] Start: 06-20-2021 End: 06-21-2021 ambulatory PROVIDER UNKNOWN Facility:[facility] Procedures Date Procedure Procedure Detail Performing Clinician Start: 12-11-2023 Basic metabolic pane l calcium total Orlando Mendenhall MD Work Phone: Start: 12-11-2023 Urnls dip stick/tabl et reagent auto microscopy Orlando Mendenhall MD Work Phone: Plan of Treatment Date Care Activity Detail Author Start: 03-10-2033 DTaP/Tdap/Td vaccine (2 - Td or Tdap) DTaP/Tdap/Td vaccine (2 - Td or Tdap) [employer] [facility] Start: 05-30-2024 GFR test (Diabetes, CKD 3-4, OR last GFR 15-59) GFR test (Diabetes, CKD 3-4, OR last GFR 15-59) [facility] Start: 12-15-2023 End: 12-15-2023 Patient encounter procedure 12/15/2023 9:50 AM EDT Office Visit [facility] [address] [place] [id number] Orlando Mendenhall MD [address] [facility], [place] [address] [facility] Start: 06-30-2023 Annual Wellness Visit (Medicare) Annual Wellness Visit (Medicare) [facility] Start: 06-20-2018 Pneumococcal 65+ years Vaccine (2 of 2 - PCV) Pneumococcal 65+ years Vaccine (2 of 2 - PCV) [facility] Start: 2014 Abdominal aortic aneurysm screening AAA screen [facility] Start: 1999 Screening for malignant neoplasm of lung Low dose CT lung screening &/or counseling [facility] Start: 1999 Shingles vaccine (1 of 2) Shingles vaccine (1 of 2) [facility] Start: 1994 Screening for malignant neoplasm of colon [facility] Start: 1967 Hepatitis C screening Hepatitis C screen [facility] Start: 1961 Depression Screen Depression Screen [facility] Start: 1959 Lipid panel Lipids [facility] Immunizations Immunization Date Immunization Notes Care Provider Fa cility 06-09-2023 Influenza, FLUAD, (a ge 65 y+), Adjuvanted, 0.5mL Julieta Aparicio MD [facility] Phone[facility] Payers Date Payer Category Payer Medicare [id number] 1959 Unknown [id number] 1950 Unknown [id number] 1950 Unknown [id number] [id number] 1950 Unknown [id number] [id number] [id number] 1950 Unknown [id number] [id number]. [id number] 1950 Unknown [id number] [id number] Social History Date Type Detail Facility Start: 06-24-2022 [facility] History of tobacco use Cigarette Smoker B [facility] Start: 06-24-2022 End: 06-02-2023 Cigarettes smoked current (pack per day) - Reported 1 [facility] Start: 06-24-2022 Tobacco use and exposure Smoke less tobacco [facility]-user [facility] Start: 06-02-2023 Alcohol intake Current drinke r of alcohol (finding) [facility] Start: 06-02-2023 [facility] Start: 1950 Sex Assigned At Not on file B [facility] Evaluation note 12-11-2023 Note Date & Type Note Facility 12-11-2023 Evaluation note Diagnosis Stage 3a chronic kidney disease (HCC) documented in this encounter [facility] Progress note 07-11-2023 Note Date & Type Note Facility 07-11-2023 Note [facility] Subjective Shey Pantoja is a 73 y.o. year old male patient being seen for 6 mo follow up CAD, PAF, aortic valve stenosis, and hypertension. Had echo and labs last week. He denies chest pain, palpitations, and bleeding on Eliquis. Patient Active Problem List Diagnosis Severe aortic stenosis by prior echocardiogram Coronary artery disease involving morongo coronary artery of morongo heart without angina pectoris Cardiomyopathy, hypertrophic (CMS/HCC) Automatic implantable cardioverter-defibrillator in situ Paroxysmal A-fib (CMS/HCC) Essential hypertension CKD (chronic kidney disease) Chronic asthmatic bronchitis with acute exacerbation (CMS/HCC) Dyspnea Hyperlipidemia NSVT (nonsustained ventricular tachycardia) (CMS/HCC) Tobacco dependence in remission Family History Problem Relation Name Age of Onset Other (Cerebrovascular accident) Father JANNY Mauricio is seen in follow-up. He is a 73-year-old man with prior complex medical history including coronary disease status post bypass surgery in 2001, hypertrophic cardiomyopathy status post ICD placement, paroxysmal atrial fibrillation status post ablation twice by Dr. Leal at [facility], hypertension, CKD stage III, severe aortic valve stenosis. He also has COPD on treatment. He takes Eliquis for anticoagulation. After visit of 01/16/2021 I checked an echocardiogram and this showed evidence of severe aortic valve stenosis with ejection fraction of 45%. I proceeded with a transesophageal echocardiogram for further assessment of his aortic valve stenosis. This showed an overall ejection fraction of 50% with severe aortic valve stenosis. Due to lack of significant symptoms I have been monitoring his aortic valve stenosis by echocardiograms. Today he reports that he has been feeling well. He denies chest pain. He has shortness of breath on moderate exertion. No lower extremity edema. No palpitations. No syncope or presyncope. Review of Systems Cardiovascular: Positive for dyspnea on exertion. Hematologic/Lymphatic: Bruises/bleeds easily. Musculoskeletal: Positive for arthritis and joint pain. All other systems reviewed and are negative. Objective Visit Vitals BP 140/70 (BP Location: Left arm, Patient Position: Sitting) Pulse 61 Ht 1.727 m (5' 8 ) Wt 83.9 kg (185 lb) SpO2 96% BMI 28.13 kg/m??? Smoking Status Never Assessed BSA 2.01 m??? Physical Exam Constitutional: Appearance: He is well-developed. He is not ill-appearing. HENT: Head: Normocephalic and atraumatic. Nose: Nose normal. Eyes: General: No scleral icterus. Pupils: Pupils are equal, round, and reactive to light. Neck: Thyroid: No thyromegaly. Vascular: No JVD. Cardiovascular: Rate and Rhythm: Normal rate and regular rhythm. Pulses: Radial pulses are 2+ on the right side and 2+ on the left side. Heart sounds: Murmur heard. Systolic (RUSB, apex) murmur is present with a grade of 3/6. No friction rub. No gallop. Pulmonary: Effort: Pulmonary effort is normal. No respiratory distress. Breath sounds: Normal breath sounds. No wheezing or rales. Chest: Chest wall: No tenderness. Abdominal: General: Bowel sounds are normal. There is no distension. Palpations: Abdomen is soft. Tenderness: There is no abdominal tenderness. Musculoskeletal: General: No swelling. Cervical back: Neck supple. Skin: General: Skin is warm and dry. Neurological: General: No focal deficit present. Mental Status: He is alert and oriented to person, place, and time. Psychiatric: Mood and Affect: Mood normal. Behavior: Behavior is cooperative. Judgment: Judgment normal. Allergies Allergies Allergen Reactions Amiodarone DYSPNEA Pantoprazole Diarrhea Medications Current Outpatient Medications: atorvastatin (Lipitor) 40 mg tablet, TAKE ONE TABLET BY MOUTH DAILY, Disp: 90 tablet, Rfl: 3 budesonide-formoteroL (Symbicort) 160-4.5 mcg/actuation inhaler, Inhale 2 puffs., Disp: , Rfl: Eliquis 5 mg tablet, TAKE ONE TABLET BY MOUTH TWICE A DAY (IN THE MORNING AND AT BEDTIME), Disp: 60 tablet, Rfl: 11 ipratropium-albuteroL (Duo-Neb) 0.5-2.5 mg/3 mL nebulizer solution, Inhale 1 vial., Disp: , Rfl: lisinopril 10 mg tablet, Take 1 tablet (10 mg) by mouth in the morning., Disp: 90 tablet, Rfl: 3 metoprolol tartrate (Lopressor) 100 mg tablet, Take 1 tablet (100 mg) by mouth in the morning and at bedtime., Disp: 180 tablet, Rfl: 3 budesonide (Pulmicort) 0.5 mg/2 mL nebulizer solution, Inhale 0.5 mg in the morning and 0.5 mg in the evening., Disp: , Rfl: Recent Labs No visits with results within 6 Month(s) from this visit. Latest known visit with results is: [facility] Encounter on 06/20/2021 Component Date Value Glucose 06/20/2021 93 BUN 06/20/2021 20 Creatinine 06/20/2021 1.41 (H) Sodium 06/20/2021 140 Potassium 06/20/2021 4.1 Chloride 06/20/2021 103 CO2 06/20/2021 30 Calcium 11 (more content not included)... [facility] Progress note 01-15-2023 Note Date & Type Note Facility 01-15-2023 Note [facility] Subjective Shey Pantoja is a 72 y.o. year old male patient being seen for follow up echo. Denies chest pain, palpitations, and bleeding on Eliquis. ROBINS remains unchanged. Says his BP during his echo on Friday was 124/74. Patient Active Problem List Diagnosis Severe aortic stenosis by prior echocardiogram Coronary artery disease involving morongo coronary artery of morongo heart without angina pectoris Cardiomyopathy, hypertrophic (CMS/HCC) Automatic implantable cardioverter-defibrillator in situ Paroxysmal A-fib (CMS/HCC) Essential hypertension CKD (chronic kidney disease) Family History Problem Relation Name Age of Onset Other (Cerebrovascular accident) Father JANNY Mauricio is seen in follow-up. He is a 72-year-old man with prior complex medical history including coronary disease status post bypass surgery in 2001, hypertrophic cardiomyopathy status post ICD placement, paroxysmal atrial fibrillation status post ablation twice by Dr. Leal at [facility], hypertension, CKD stage III, severe aortic valve stenosis. He also has COPD on treatment. He takes Eliquis for anticoagulation. After visit of 01/16/2021 I checked an echocardiogram and this showed evidence of severe aortic valve stenosis with ejection fraction of 45%. I proceeded with a transesophageal echocardiogram for further assessment of his aortic valve stenosis. This showed an overall ejection fraction of 50% with severe aortic valve stenosis. due to lack of significant symptoms I have been monitoring his aortic valve stenosis by echocardiograms. Today he reports that he has been feeling well. He denies chest pain. He has shortness of breath on moderate exertion. No lower extremity edema. No palpitations. No syncope or presyncope. Review of Systems Cardiovascular: Positive for dyspnea on exertion. Hematologic/Lymphatic: Bruises/bleeds easily. Musculoskeletal: Positive for arthritis and joint pain. All other systems reviewed and are negative. Objective Visit Vitals BP 147/66 (BP Location: Left arm, Patient Position: Sitting) Pulse 60 Ht 1.727 m (5' 8 ) Wt 81.6 kg (180 lb) SpO2 96% BMI 27.37 kg/m??? Smoking Status Never Assessed BSA 1.98 m??? Physical Exam Constitutional: Appearance: He is well-developed. He is not ill-appearing. HENT: Head: Normocephalic and atraumatic. Nose: Nose normal. Eyes: General: No scleral icterus. Pupils: Pupils are equal, round, and reactive to light. Neck: Thyroid: No thyromegaly. Vascular: No JVD. Cardiovascular: Rate and Rhythm: Normal rate and regular rhythm. Pulses: Radial pulses are 2+ on the right side and 2+ on the left side. Heart sounds: Murmur heard. Systolic (RUSB, apex) murmur is present with a grade of 3/6. No friction rub. No gallop. Pulmonary: Effort: Pulmonary effort is normal. No respiratory distress. Breath sounds: Normal breath sounds. No wheezing or rales. Chest: Chest wall: No tenderness. Abdominal: General: Bowel sounds are normal. There is no distension. Palpations: Abdomen is soft. Tenderness: There is no abdominal tenderness. Musculoskeletal: General: No swelling. Cervical back: Neck supple. Skin: General: Skin is warm and dry. Neurological: General: No focal deficit present. Mental Status: He is alert and oriented to person, place, and time. Psychiatric: Mood and Affect: Mood normal. Behavior: Behavior is cooperative. Judgment: Judgment normal. Allergies Allergies Allergen Reactions Amiodarone DYSPNEA Pantoprazole Diarrhea Medications Current Outpatient Medications: albuterol 90 mcg/actuation inhaler, albuterol sulfate HFA 90 mcg/actuation aerosol inhaler, Disp: , Rfl: apixaban (Eliquis) 5 mg tablet, Take 1 tablet (5 mg) by mouth in the morning and at bedtime., Disp: 60 tablet, Rfl: 11 atorvastatin (Lipitor) 40 mg tablet, TAKE ONE TABLET BY MOUTH DAILY, Disp: 90 tablet, Rfl: 3 budesonide-formoteroL (Symbicort) 160-4.5 mcg/actuation inhaler, Inhale 2 puffs., Disp: , Rfl: ipratropium-albuteroL (Duo-Neb) 0.5-2.5 mg/3 mL nebulizer solution, Inhale 1 vial., Disp: , Rfl: lisinopril 10 mg tablet, Take 1 tablet (10 mg) by mouth in the morning., Disp: 90 tablet, Rfl: 3 metoprolol tartrate (Lopressor) 100 mg tablet, Take 100 mg by mouth in the morning and at bedtime., Disp: , Rfl: budesonide (Pulmicort) 0.5 mg/2 mL nebulizer solution, Inhale 0.5 mg in the morning and 0.5 mg in the evening., Disp: , Rfl: Recent Labs No visits with results within 6 Month(s) from this visit. Latest known visit with results is: [facility] Encounter on 06/20/2021 Component Date Value Glucose 06/20/2021 93 BUN 06/20/2021 20 Creatinine 06/20/2021 1.41 (A) Sodium 06/20/2021 140 Potassium 06/20/2021 4.1 Chloride 06/20/2021 103 CO2 06/20/2021 30 Calcium 06/20/2021 9.7 eGFR - Non- Ameri* 06/20/2021 49 (A) eGFR - 06/20/2021 60 (A) (more content not included)... [facility] Summary Purpose Family History No Family History Records FoundNo Family History Records FoundNo Family History Records FoundNo Family History Records Found Advance Directives No Advanced Directives Records FoundNo Advanced Directives Records FoundNo Advanced Directives Records FoundNo Advanced Directives Records Found Additional Source Comments (unrecognized sect ion and content) No Status Records FoundNo Status Records FoundNo Status Records FoundNo Status Records Found INFORMATION SOURCE (unrecogn ized section and content) DATE CREATED AUTHOR 01/01/[address] [facility] DATE CREATED AUTHOR AUTHOR'S ORGANIZ ATION 06/20/2022 [facility] DATE CREATED AUTHOR AUTHOR'S ORGANIZ ATION 07/26/2023 [facility] DATE CREATED AUTHOR AUTHOR'S ORGANIZ ATION 12/19/2023 [facility] Care Teams (unrecognized sec tion and content) [employer] Relationship Specialty Start Date End Date Julieta Aparicio MD [address] [place] [address] PCP - General 10/11/19 FOR RECORDS PERTAINING TO PATIENTS WHO ARE OR HAVE BEEN ENROLLED IN A CHEMICAL DEPENDENCY/SUBSTANCEABUSE PROGRAM, SOME INFORMATION MAY BE OMITTED. This clinical summary was aggregated from multiple sources. Caution should be exercised in using it in the provision of clinical care. This summary normalizes information from multiple sources, and as a consequence, information in this document may materially change the coding, format and clinical context of patient data. In addition, data may be omitted in some cases. CLINICAL DECISIONS SHOULD BE BASED ON THE PRIMARY CLINICAL RECORDS. [facility] [employer] [facility]. provides no warranty or guarantee of the accuracy or completeness of information in this document.
--- NOTE | 2024-01-26 08:56 | CA_ITS ---
Patient Name: SHEY TAVERAS MR#: [id number] : 1950 Exam Date: 01/26/2024 Ordering Doctor: DR GERTRUDIS CHUN M.D. ECHOCARDIOGRAM REPORT PROCEDURE: CA ECHO DOPPLER COMPLETE INDICATIONS: Nonrheumatic aortic valve stenosis COMPARISON: None. DESCRIPTION: COMPLETE ECHOCARDIOGRAM Real-time transthoracic echocardiography with 2D, M-mode, spectral and color flow Doppler performed. QUALITY: Technical quality was good. LEFT VENTRICLE: Normal chamber size. Moderate concentric left ventricular hypertrophy. There is evidence of apical akinesis to dyskinesis. The rest of the ventricular segments contract well. Global systolic function appears to be normal. LV EF: Normal ejection fraction [55%]. DIASTOLIC: Grade II diastolic dysfunction. ATRIAL SEPTUM: LEFT ATRIUM: Moderate dilatation. RIGHT ATRIUM: Moderate dilatation. RIGHT VENTRICLE: Normal chamber size. Normal right ventricular systolic function. Pacer wire present. TRICUSPID VALVE: Normal mobility and thickness. No stenosis with mild regurgitation. Moderate pulmonary hypertension. RVSP 47 mmHg MITRAL VALVE: Mildly thickened with normal mobility. No evidence of mitral valve stenosis. Mild mitral annular calcification. Mild to moderate mitral regurgitation. AORTIC VALVE: Normal trileaflet appearance. Severely calcified aortic valve. Severely diminished mobility. Doppler velocity suggest severe aortic valve stenosis. DVI 0.24, CAMMIE 0.8 cm2, Vmax 3.9 m/s, Mean gradient 38 mmHg. Mild aortic regurgitation. AORTIC ROOT: Normal diameter and appearance. PULMONIC VALVE: Normal thickness and mobility. No stenosis. Trivial regurgitation. PERICARDIUM: No evidence of pericardial effusion. IVC: Collapses with inspirations. Normal size, PLEURA: CONCLUSION: 1. Moderate concentric left ventricular hypertrophy. Global systolic function is normal with wall motion abnormalities involving the apex. LVEF is estimated at 55%. 2. Normal right ventricular size and systolic function. 3. Moderate biatrial dilatation. 4. Severe aortic valve stenosis with mild regurgitation. 5. Mild tricuspid and mild to moderate mitral regurgitation. 6. Moderately elevated right-sided pressures. Adult Echocardiography Procedure Report Left Ventricle LVEDD (3.7 - 5.6 cm): 4.62 cm LVESD (2.2 - 4.0 cm): 3.00 cm LVIVS thickness (0.6 - 1.2 cm): 1.43 cm LVPW thickness (0.5 - 1.0 cm): 1.40 cm e': 0.08 m/s E - e': 10.46 LVOT Max Gradient: 3.59 mm[Hg] LVOT Area (cm2): 0.95 m/s Peak Velocity (LVOT): 0.95 m/s Mean Velocity (LVOT): 0.68 m/s LVOT Diameter 2.00 cm Left Ventricular Ejection Fraction: 55 % Left Atrium LA Volume Index (2D A2C): 58.44 ml/m2 Left Atrium Systolic Dimension: 6.21 cm Mitral Valve MV E to A Ratio: 2.12 Mitral Valve A-Wave Peak Velocity: 0.41 m/s Mitral Valve E-Wave Peak Velocity: 0.87 m/s Right Ventricle RV Internal Diastolic Dimension: 3.62 cm Aorta AO Root Diam: 3.23 cm Ascending Ao Diam: 3.31 cm Aortic Valve AoV Area (Peak Eitan): 0.78 cm2, 0.78 cm2 AoV Area (VTI): 0.82 cm2, 0.85 cm2 Deceleration Worth: 1.75 m/s2, 1.78 m/s2 Pressure Half-Time: 549.37 ms, 587.74 ms Peak Velocity(Antegrade Flow): 3.81 m/s, 3.75 m/s, 3.90 m/s Peak Gradient(Antegrade Flow): 57.96 mm[Hg], 56.23 mm[Hg], 60.79 mm[Hg] Mean Velocity(Antegrade Flow): 2.93 m/s, 2.68 m/s, 2.91 m/s Mean Gradient(Antegrade Flow): 37.67 mm[Hg], 33.59 mm[Hg], 37.14 mm[Hg] Velocity Time Integral: 93.77 cm, 97.91 cm, 98.14 cm Tricuspid Valve Peak Velocity (Regurgitant Flow): 2.68 m/s, 2.29 m/s, 3.33 m/s Pulmonic Valve Mean Gradient: 1.10 mm[Hg], 1.18 mm[Hg] Mean Velocity: 0.47 m/s, 0.52 m/s Peak Velocity: 0.78 m/s Peak Gradient: 2.43 mm[Hg], 2.43 mm[Hg] Right Atrium Right Atrium Systolic Pressure: 71.34 ml, 71.34 ml Dictated by: Gertrudis Chun M.D. on 01/26/2024 at 19:12 Approved by: Gertrudis Chun M.D. on 01/26/2024 at 19:24
== END 2024-01-26 08:47 | disposition home or self-care (01) ==
LOC: CARD 08:46
PROVIDERS: Visit Provider Internal Medicine Interventional Cardiology
DX: I35.0 Nonrheumatic aortic (valve) stenosis (principal)
CPT/HCPCS: 93306